=== PATIENT | female | born 1995 | race Caucasian/White ===

== ENCOUNTER 2019-04-25 15:08 | Emergency (ER) | payer OTHER ==
[~2019-04-25] VITALS: Ht 152.4 cm; Wt 60.8 kg
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
--- NOTE | 2019-04-25 15:57 | NUR ---
PT MEDICALLY CLEARED AND OKAY TO BE BOOKED. VSS.
[2019-04-25 15:58] VITALS: BP 126/72
== END 2019-04-25 15:58 | disposition home or self-care (01) ==
LOC: ER 15:15
DX: Z00.00 Encounter for general adult medical examination without abnormal findings (principal)